=== PATIENT | female | born 1955 | race Caucasian/White ===

== ENCOUNTER 2018-09-24 11:49 | Emergency (ER) | payer SELFPAY ==
[2018-09-24 12:26] VITALS: BP 145/50; PULSE 121; RESP 15; TEMP 98.2; O2SAT 96
--- NOTE | 2018-09-24 13:02 | C.PDOC ---
Time Seen by Provider: 09/24/18 12:47 Chief Complaint (Nursing): Medical Clearance Past Medical History Vital Signs: Last Vital Signs Temp 98.2 F 09/24/18 11:53 Pulse 121 H 09/24/18 11:53 Resp 15 09/24/18 11:53 BP 145/50 L 09/24/18 11:53 Pulse Ox 96 09/24/18 11:53 - Medical History PMH: Arthritis - Social History Hx Alcohol Use: No Hx Substance Use: No - Immunization History Hx Tetanus Toxoid Vaccination: No Hx Influenza Vaccination: No Hx Pneumococcal Vaccination: No ED Course And Treatment O2 Sat by Pulse Oximetry: 96 Disposition - Disposition Referrals: [facility] [Outside] Disposition: HOME/ ROUTINE Condition: STABLE Instructions: When Your Child Dies Forms: [facility] (Serbian) Print Language: SERBIAN - Clinical Impression Clinical Impression: Medical assessment, Grief reaction
--- NOTE | 2018-09-24 13:02 | C.PDOC ---
Time Seen by Provider: 09/24/18 12:47 Chief Complaint (Nursing): Medical Clearance Past Medical History Vital Signs: Last Vital Signs Temp 98.2 F 09/24/18 11:53 Pulse 121 H 09/24/18 11:53 Resp 15 09/24/18 11:53 BP 145/50 L 09/24/18 11:53 Pulse Ox 96 09/24/18 11:53 - Medical History PMH: Arthritis - Social History Hx Alcohol Use: No Hx Substance Use: No - Immunization History Hx Tetanus Toxoid Vaccination: No Hx Influenza Vaccination: No Hx Pneumococcal Vaccination: No ED Course And Treatment O2 Sat by Pulse Oximetry: 96 Disposition Counseled Patient/Family Regarding: Diagnosis, Need For Followup - Disposition Referrals: [facility] [Outside] Disposition: HOME/ ROUTINE Disposition Time: 12:50 Condition: STABLE Instructions: When Your Child Dies Print Language: LAO - Clinical Impression Clinical Impression: Medical assessment, Grief reaction
--- NOTE | 2018-09-24 19:35 | PCM.RRT ---
INVAS TECH Nurses Assessment - Situation Date: 09/24/18 Time INVAS TECH was called: 11:49 INVAS TECH Location:: 9I ICU - IV IV Inserted during INVAS TECH?: No I.Reason for INVAS TECH - A) Acute Change in Patient: Subjective: House Doctor Note INVAS TECH was called for patient at 11:49 AM in ICU Patient is mother of patient who in ICU this morning, was emotionally upset by news and had syncopal episode per ICU nurse. No falls or head trauma. Vital signs: BP 124/81, HR 67, O2 sat 99% RA, Blood glucose 192 Patient was transported down to ED for further monitoring, likely grief reaction - Neurological Status (Select all that apply): Alert, Responsive, Oriented, Verbal - Constitutional Appears: Non-toxic, No Acute Distress - Head Head Exam: ATRAUMATIC, NORMAL INSPECTION, NORMOCEPHALIC - Eyes Eye Exam: EOMI, Normal appearance, PERRL - Respiratory Exam Respiratory Exam: Clear to Ausculation Bilateral, NORMAL BREATHING PATTERN. absent: Accessory Muscle Use, Rales, Rhonchi, Wheezes, Respiratory Distress, Stridor - Cardiovascular Exam Cardiovascular Exam: REGULAR RHYTHM, +S1, +S2 - GI/Abdominal Exam GI & Abdominal Exam: Soft, Normal Bowel Sounds. absent: Distended, Firm, Guarding, Rigid, Tenderness, Rebound - Neurological Exam Neurological Exam: Alert, Awake, CN II-XII Intact, Oriented x3 - Extremities Exam Extremities Exam: Full ROM, Normal Capillary Refill, Normal Inspection. absent: Calf Tenderness, Pedal Edema
--- NOTE | 2018-09-25 23:20 | CARD ---
APPROVED REPORT Date of service: 09/24/2018 EKG Measurement Heart [id number] <Conclusion> Normal sinus rhythm Anteroseptal infarct, age undetermined Abnormal ECG
== END 2018-09-24 13:06 | disposition home or self-care (01) ==
LOC: C.ER 11:49
DX: F43.20 Adjustment disorder, unspecified (principal)